=== PATIENT | female | born 1930 | race Caucasian/White ===

== ENCOUNTER → 2016-09-28 | Outpatient (CLI) | payer MEDICARE, OTHER ==
[~2016-09-28] MED LIST: AMIO200T42 PO; AMLO10TA2 PO; APIX2.5T PO; CEFD300C37 PO; CHOL20002 PO; DILT120C9 PO; DILT120T3 PO; DISO150C3 PO; DOXY100T PO; FURO-93 PO; IRON15TA3 PO; LEVO50TA5 PO; LISI-170 PO; MECL25TA2 PO; MULT-717 PO; OMEP-110 PO; VIT1TABL32 PO; WARF4TAB7 PO
== END | disposition home or self-care (01) ==
LOC: CARD 13:49
PROVIDERS: ATTEND Internal Medicine Pulmonary Disease
DX: R05 Cough (principal)
CPT/HCPCS: 94060

== ENCOUNTER → 2016-12-08 | Outpatient (CLI) | payer MEDICARE, OTHER ==
[~2016-12-08] MED LIST changes: +OMNIPAQUE 350 MG/ML, 100ML BOTTLE ONE
== END | disposition home or self-care (01) ==
LOC: CFH 11:02
PROVIDERS: ATTEND Nurse Practitioner
DX: K57.30 Diverticulosis of large intestine without perforation or abscess without bleeding (principal); K44.9 Diaphragmatic hernia without obstruction or gangrene; R19.09 Other intra-abdominal and pelvic swelling, mass and lump; N28.1 Cyst of kidney, acquired; M41.86 Other forms of scoliosis, lumbar region; M51.36 Other intervertebral disc degeneration, lumbar region; R59.0 Localized enlarged lymph nodes
CPT/HCPCS: 74177; Q9967

== ENCOUNTER 2017-02-16 09:07 | Day surgery (SDC) | payer MEDICARE, OTHER ==
[~2017-02-16] VITALS: Ht 160 cm; Wt 56.1 kg
[~2017-02-16 09:07] MED LIST changes: -OMNIPAQUE 350 MG/ML, 100ML BOTTLE ONE
[2017-02-16] MEDS ORDERED: LIDOCAINE 2%, 20ML ONE (09:29)
[2017-02-16] MEDS ORDERED: PLEASE ENTER HEIGHT AND WEIGHT MC SCH (10:00)
[2017-02-16 10:02] VITALS: BP 138/84
[2017-02-16] MEDS ORDERED: SODIUM CHLORIDE 0.9% 1,000 ML IV SCH (10:30)
[2017-02-16] MEDS ORDERED: FENTANYL PF 100 MCG/2ML ONE (10:57)
[2017-02-16] MEDS ORDERED: NALOXONE 1 MG/ML, 2ML ONE (10:57)
[2017-02-16] MEDS ORDERED: MIDAZOLAM 1 MG/ML, 5ML ONE (10:57)
[2017-02-16] MEDS ORDERED: FLUMAZENIL 0.1 MG/1 ML, 5ML ONE (10:57)
== END 2017-02-16 12:50 | disposition home or self-care (01) ==
LOC: OUT 09:07
PROVIDERS: ATTEND Internal Medicine
DX: C85.80 Other specified types of non-Hodgkin lymphoma, unspecified site (principal); R59.1 Generalized enlarged lymph nodes; I10 Essential (primary) hypertension; Z87.891 Personal history of nicotine dependence
CPT/HCPCS: 49180; 77012; 88305; 99156; 99157; J2250; J3010; J3490; J2310

== ENCOUNTER → 2017-06-07 | Outpatient (CLI) | payer MEDICARE, OTHER | END | disposition home or self-care (01) | LOC: CFH 11:12 | PROVIDERS: ATTEND Internal Medicine | DX: C85.90 Non-Hodgkin lymphoma, unspecified, unspecified site (principal); M51.36 Other intervertebral disc degeneration, lumbar region; K44.9 Diaphragmatic hernia without obstruction or gangrene | CPT/HCPCS: 71250; 74176 ==

== ENCOUNTER 2017-09-28 08:22 | Day surgery (SDC) | payer MEDICARE, OTHER ==
[~2017-09-28] VITALS: Ht 160 cm; Wt 56.9 kg
[~2017-09-28 08:22] MED LIST changes: +WARF4TAB65 PO; -WARF4TAB7 PO
[2017-09-28 08:41] VITALS: BP 138/71
[2017-09-28] MEDS ORDERED: LACTATED RINGERS 1,000 ML IV SCH (08:51)
[2017-09-28] MEDS ORDERED: MIDAZOLAM 1 MG/ML, 2ML ONE (09:34)
[2017-09-28] MEDS ORDERED: FENTANYL PF 100 MCG/2ML ONE (09:34)
[2017-09-28] MEDS ORDERED: PROPOFOL 50 ML ONE (09:35)
[2017-09-28] MEDS ORDERED: ONDANSETRON 0.8 MG/ML ORAL SOL PO PRN (11:00)
[2017-09-28] MEDS ORDERED: LABETALOL 5MG/ML, 20ML IV PRN (11:00)
[2017-09-28] MEDS ORDERED: MEPERIDINE/PF 25MG/0.5ML IVPush PRN (11:00)
[2017-09-28] MEDS ORDERED: MORPHINE SULFATE 4 MG/ML, 1ML IVPush PRN (11:00)
[2017-09-28] MEDS ORDERED: FENTANYL PF 100 MCG/2ML IV PRN (11:00)
[2017-09-28] MEDS ORDERED: ACETAMINOPHEN 325 MG TABLET PO PRN (11:00)
[2017-09-28] MEDS ORDERED: hydrALAzine 20 MG/ML, 1ML IV PRN (11:00)
== END 2017-09-28 11:45 ==
LOC: OUT 08:22
PROVIDERS: ATTEND Internal Medicine Gastroenterology
DX: K57.30 Diverticulosis of large intestine without perforation or abscess without bleeding (principal); K22.2 Esophageal obstruction; K31.89 Other diseases of stomach and duodenum; D64.9 Anemia, unspecified
CPT/HCPCS: 43239; 43248; 45330; 88305; 93005; J2250; J2704; J3010

== ENCOUNTER → 2017-11-21 | Outpatient (CLI) | payer MEDICARE, OTHER ==
[~2017-11-21] MED LIST changes: +WHEA1POW5 PO
== END | disposition home or self-care (01) ==
LOC: CFH 10:46
PROVIDERS: ATTEND Internal Medicine
DX: J98.4 Other disorders of lung (principal); N20.0 Calculus of kidney; I51.7 Cardiomegaly; K44.9 Diaphragmatic hernia without obstruction or gangrene; R59.1 Generalized enlarged lymph nodes; E04.1 Nontoxic single thyroid nodule; I70.0 Atherosclerosis of aorta; C83.00 Small cell B-cell lymphoma, unspecified site; M41.86 Other forms of scoliosis, lumbar region; Z90.710 Acquired absence of both cervix and uterus
CPT/HCPCS: 71250; 74176

== ENCOUNTER 2018-04-18 19:26 | Observation (INO) | payer MEDICARE, OTHER ==
[~2018-04-18] VITALS: Ht 157.5 cm; Wt 52.5 kg
[~2018-04-18 19:26] MED LIST changes: -AMLO10TA2 PO; +AMLO10TA6 PO; -CHOL20002 PO; +CHOL200052 PO
[2018-04-18] MEDS ORDERED: IRON1TAB60 PO (19:42)
[2018-04-18] MEDS ORDERED: CHOL2000 PO (19:42)
[2018-04-18] MEDS ORDERED: SODIUM CHLORIDE FLUSH 10ML SYR IVF ONE (20:30)
[2018-04-18 20:37] LABS: BASOPHILS # (AUTO) 0.02 x10^3/uL (0-0.1); BASOPHILS % (AUTO) 0 % (0-1); EOSINOPHILS % (AUTO) 1 % (1-7); LYMPHOCYTES # (AUTO) 1.15 x10^3/uL (1-3.4); LYMPHOCYTES % (AUTO) 13 % (22-44); MD NO; MEAN CORPUSCULAR HEMOGLOBIN 29.9 pg (27.0-34.8); MEAN CORPUSCULAR HGB CONC 32.9 g/dL (32.4-35.8); MEAN CORPUSCULAR VOLUME 90.8 fL (80-100); MEAN PLATELET VOLUME 8.5 fL (7.4-10.4); MONOCYTES # (AUTO) 0.47 x10^3/uL (0.2-0.8); MONOCYTES % (AUTO) 5 % (2-9); NEUTROPHILS # (AUTO) 6.86 x10^3/uL (1.8-6.8); NEUTROPHILS % (AUTO) 80 % (42-75); PLATELET COUNT 213 x10^3/uL (130-400); RED BLOOD COUNT 3.53 x10^6/uL (3.82-5.3); RED CELL DISTRIBUTION WIDTH 14.3 % (9.6-15.2)
[2018-04-18 20:48] LABS: ALANINE AMINOTRANSFERASE 43 U/L (12-78); ALBUMIN 3.8 g/dL (3.4-5.0); ANION GAP 10 mmol/L (5-15); CALCIUM 8.9 mg/dL (8.5-10.1); CHLORIDE 106 mmol/L (98-107); CREATININE 1.96 mg/dL (0.55-1.02)
[2018-04-18 20:53] LABS: ALKALINE PHOSPHATASE 85 U/L (45-117); BILIRUBIN,TOTAL 0.5 mg/dL (0.2-1.0); TOTAL PROTEIN 7.7 g/dL (6.4-8.2); TROPONIN I < 0.015 ng/mL (0.000-0.045)
[2018-04-18 20:59] LABS: THYROID STIMULATING HORMONE 0.876 mIU/L (0.358-3.740)
[2018-04-18] MEDS ORDERED: ACETAMINOPHEN 325 MG TABLET PO PRN (22:30)
[2018-04-18] MEDS ORDERED: SODIUM CHLORIDE 0.9% 1,000 ML IV SCH (22:30)
[2018-04-18] MEDS ORDERED: POLYETHYLENE GLYCOL 17 GM PACKET PO PRN (22:30)
[2018-04-18 22:47] VITALS: BP 158/62
[2018-04-19 01:04] LABS: TROPONIN I < 0.015 ng/mL (0.000-0.045)
[2018-04-19 01:27] VITALS: BP 123/55
[2018-04-19 05:55] LABS: CHOL/HDL RATIO 2.2; CHOLESTEROL, TOTAL 144 mg/dL (140-239); HDL CHOL % 46 % (28-40); HDL CHOLESTEROL (DIRECT) 66 mg/dL (40-60); LDL CHOLESTEROL,CALCULATED 61 mg/dL (54-169); LDL/HDL RATIO 0.9 (0.5-3.0); TRIGLYCERIDES 84 mg/dL (50-200); TROPONIN I < 0.015 ng/mL (0.000-0.045); VLDL CHOLESTEROL 17 mg/dL (0-25)
[2018-04-19] MEDS ORDERED: LEVOTHYROXINE 50 MCG TABLET PO SCH (06:30)
[2018-04-19] MEDS ORDERED: REGADENOSON 0.4 MG/5 ML SYRINGE ONE (07:22)
[2018-04-19 07:35] VITALS: BP 126/60
[2018-04-19] MEDS ORDERED: CHOLECALCIFEROL 1,000 UNIT TABLET PO SCH (09:00)
[2018-04-19] MEDS ORDERED: MULTIVITS,STRESS FORMULA 1 TABLET PO SCH (09:00)
[2018-04-19] MEDS ORDERED: SODIUM CHLORIDE FLUSH 10ML SYR IVF SCH (09:00)
[2018-04-19] MEDS ORDERED: TEMPLATE NON-FORMULARY MED. (Vit A,C & E/Lutein/Minerals** (Ocuvite Tablet**) 1 TAB) PO SCH (09:00)
[2018-04-19] MEDS ORDERED: LISINOPRIL 20 MG TABLET PO SCH (09:00)
[2018-04-19] MEDS ORDERED: MULTIVITAMINS/MINERALS TABLET PO SCH (09:00)
[2018-04-19] MEDS ORDERED: TEMPLATE NON-FORMULARY MED. (Iron,Carbonyl/Vit C/Vit B12/Fa** (Iron 100 Plus Tablet**) 1 T PO SCH (09:00)
[2018-04-19] MEDS ORDERED: AMIODARONE 200 MG TABLET PO SCH (09:00)
[2018-04-19] MEDS ORDERED: AMLODIPINE 5 MG TABLET PO SCH (09:00)
[2018-04-19 13:35] VITALS: BP 110/52
== END 2018-04-19 15:55 | disposition home or self-care (01) ==
LOC: SUATTDRO 22:00 → ED 22:14 → EDIP 22:16 → INTOOBSV 22:16 → 5SO 22:30
PROVIDERS: ADMIT Hospitalist; ATTEND Hospitalist
DX: R07.89 Other chest pain (principal); D64.9 Anemia, unspecified; I13.0 Hypertensive heart and chronic kidney disease with heart failure and stage 1 through stage 4 chronic kidney disease, or unspecified chronic kidney disease; N17.9 Acute kidney failure, unspecified; I48.2 Chronic atrial fibrillation; E03.9 Hypothyroidism, unspecified; I27.20 Pulmonary hypertension, unspecified; I50.9 Heart failure, unspecified; K21.9 Gastro-esophageal reflux disease without esophagitis; N18.9 Chronic kidney disease, unspecified; Z79.82 Long term (current) use of aspirin; Z85.72 Personal history of non-Hodgkin lymphomas; Z87.891 Personal history of nicotine dependence; Z95.0 Presence of cardiac pacemaker; Z90.710 Acquired absence of both cervix and uterus
CPT/HCPCS: 36415; 71045; 78452; 80053; 80061; 83735; 83880; 84439; 84443; 84484; 85025; 93005; 93017; 99284; A9502; C9898; G0378; J2785; J7030

== ENCOUNTER 2018-06-25 11:26 | Inpatient (IN) | payer MEDICARE, OTHER ==
[~2018-06-25] VITALS: Ht 157.5 cm; Wt 60.6 kg
[~2018-06-25 11:26] MED LIST changes: -AMLO10TA6 PO; +AMLO10TA8 PO; +CHOL2000 PO; +IRON1TAB60 PO
[2018-06-25 11:51] LABS: BASOPHILS % (AUTO) 0 % (0-1); EOSINOPHILS % (AUTO) 0 % (1-7); LYMPHOCYTES # (AUTO) 0.59 x10^3/uL (1-3.4); LYMPHOCYTES % (AUTO) 5 % (22-44); MD NO; MEAN CORPUSCULAR HEMOGLOBIN 29.3 pg (27.0-34.8); MEAN CORPUSCULAR HGB CONC 32.7 g/dL (32.4-35.8); MEAN CORPUSCULAR VOLUME 89.6 fL (80-100); MEAN PLATELET VOLUME 7.6 fL (7.4-10.4); MONOCYTES # (AUTO) 0.11 x10^3/uL (0.2-0.8); MONOCYTES % (AUTO) 1 % (2-9); NEUTROPHILS # (AUTO) 10.29 x10^3/uL (1.8-6.8); NEUTROPHILS % (AUTO) 94 % (42-75); PLATELET COUNT 249 x10^3/uL (130-400); RED BLOOD COUNT 3.63 x10^6/uL (3.82-5.3); RED CELL DISTRIBUTION WIDTH 14.1 % (9.6-15.2)
--- NOTE | 2018-06-25 11:52 | NUR ---
BIB [facility] WITH C/O SUDDEN ONSET OF BILATERAL FLANK PAIN. WORSE ON RIGHT SIDE. PT DENIES HEMATURIA. STATES STARTED AROUND 0500. WHEN [facility] FIRST ARRIVED PAIN WAS A 8/10. AFTER 100MCG OF FENTANYL PAIN IS NOW A 4/10. PT WAS ALSO GIVEN 4MG OF ZOFRAN FOR NAUSEA. MILD AMOUNT OF DISTRESS NOTED AT THIS TIME. BREATHING REGULAR AND UNLABORED. ERMD AT BEDSIDE. POC DISCUSSED. PT AWARE OF NEED FOR URINE. PT PLACED ON CONT. PULSE OX AND BP. WILL CONTINUE TO MONITOR.
--- NOTE | 2018-06-25 11:56 | NUR ---
Paige roca in EDM - 06/25/18 at 1621 by VEL assumed care. Pt moved from [place] to 14. pt placed on special contact precautions. After MD exam, pt to xray via filomena
[2018-06-25] MEDS ORDERED: SODIUM CHLORIDE FLUSH 10ML SYR IVF ONE (12:00)
[2018-06-25 12:02] LABS: ANION GAP 6 mmol/L (5-15); CALCIUM 9.5 mg/dL (8.5-10.1); CHLORIDE 104 mmol/L (98-107)
[2018-06-25 12:06] LABS: ALANINE AMINOTRANSFERASE 26 U/L (12-78); ALKALINE PHOSPHATASE 71 U/L (45-117); BILIRUBIN,TOTAL 0.8 mg/dL (0.2-1.0); CREATININE 1.93 mg/dL (0.55-1.02); TOTAL PROTEIN 7.7 g/dL (6.4-8.2)
[2018-06-25] MEDS ORDERED: MORPHINE SULFATE 4 MG/ML, 1ML ONE ×2 (12:22→15:04)
[2018-06-25] MEDS ORDERED: MORPHINE SULFATE 4 MG/ML, 1ML IVPush ONE (12:30)
--- NOTE | 2018-06-25 12:57 | NUR ---
PT MEDICATED PER MAR FOR INCREASED PAIN. POC UPDATED.
--- NOTE | 2018-06-25 13:30 | NUR ---
PT STATES IMPROVEMENT OF PAIN AT THIS TIME. POC UPDATED. PT PREFERS FEMALE RN TO PERFORM CATH.
--- NOTE | 2018-06-25 14:40 | NUR ---
CATALINA ORTEGA AT BEDSIDE TP PREFORM STRIGHT CATH UA.
[2018-06-25 15:07] LABS: MICROSCOPIC INDICATED
--- NOTE | 2018-06-25 15:10 | NUR ---
PT MEDICATED FOR INCREASED PAIN BY CATALINA MORRELL.
[2018-06-25 15:16] LABS: CULTURE INDICATED? NO
[2018-06-25] MEDS ORDERED: morphine SULFATE 10 MG/ML, 1ML IVPush ONE (15:30)
[2018-06-25] MEDS ORDERED: morphine SULFATE/PF 0.5 MG/ML, 10ML IV PRN (15:30)
[2018-06-25] MEDS ORDERED: ZOLPIDEM 5MG TABLET PO PRN (16:00)
[2018-06-25] MEDS ORDERED: ONDANSETRON ODT 4 MG PO PRN (16:00)
[2018-06-25] MEDS ORDERED: LABETALOL 5MG/ML, 20ML IVPush PRN (16:00)
[2018-06-25] MEDS ORDERED: POLYETHYLENE GLYCOL 17 GM PACKET PO PRN (16:00)
[2018-06-25] MEDS ORDERED: LIDODERM 5% PATCH TD PRN (16:00)
[2018-06-25] MEDS ORDERED: ONDANSETRON 2MG/ML, 2ML IVPush PRN (16:00)
[2018-06-25] MEDS ORDERED: BISACODYL 10 MG SUPP PR PRN (16:00)
[2018-06-25] MEDS ORDERED: DOCUSATE 100 MG CAPSULE PO PRN (16:00)
[2018-06-25] MEDS ORDERED: HYDROcodone/APAP 5/325 TABLET PO PRN (16:00)
[2018-06-25] MEDS ORDERED: hydrALAzine 20 MG/ML, 1ML IVPush PRN (16:00)
--- NOTE | 2018-06-25 16:10 | NUR ---
PT PLACED ON OXY MASK FOR HER MOUTH BREATHING.
[2018-06-25 16:24] LABS: FREE T4 (FREE THYROXINE) 1.8 ng/dL (0.76-1.46); THYROID STIMULATING HORMONE 2.71 mIU/L (0.358-3.740)
--- NOTE | 2018-06-25 17:25 | NUR ---
BELONGINGS: MARIA DE JESUS, CELL PHONE, OXYGEN IN BLACK CASE, PINK ROBE, SLIPPERS AND GLASSES. REPORT TO EMILE.
[2018-06-25 17:44] VITALS: BP 154/67
[2018-06-25] MEDS: SODIUM CHLORIDE 0.9% 1,000 ML IV SCH (18:15)
[2018-06-25] MEDS: HEPARIN 5,000 UNITS/ML, 1ML SQ SCH (18:15)
[2018-06-25] MEDS: AMLODIPINE 5 MG TABLET PO SCH (21:00)
[2018-06-25 22:04] VITALS: BP 154/60
[2018-06-25] MEDS: morphine SULFATE 10 MG/ML, 1ML IVPush PRN (23:06)
[2018-06-26 00:17] VITALS: BP 150/52
[2018-06-26] MEDS: HEPARIN 5,000 UNITS/ML, 1ML SQ SCH ×3 (02:00→16:43)
[2018-06-26] MEDS: morphine SULFATE 10 MG/ML, 1ML IVPush PRN ×2 (02:49→05:21)
[2018-06-26] MEDS: SODIUM CHLORIDE 0.9% 1,000 ML IV SCH ×3 (02:52→19:59)
[2018-06-26 06:54] VITALS: BP 123/62
[2018-06-26 06:59] LABS: BASOPHILS # (AUTO) 0.01 x10^3/uL (0-0.1); BASOPHILS % (AUTO) 0 % (0-1); EOSINOPHILS # (AUTO) 0.01 x10^3/uL (0-0.4); EOSINOPHILS % (AUTO) 0 % (1-7); LYMPHOCYTES # (AUTO) 0.87 x10^3/uL (1-3.4); LYMPHOCYTES % (AUTO) 8 % (22-44); MD NO; MEAN CORPUSCULAR HGB CONC 33.3 g/dL (32.4-35.8); MEAN CORPUSCULAR VOLUME 90.1 fL (80-100); MONOCYTES # (AUTO) 0.66 x10^3/uL (0.2-0.8); MONOCYTES % (AUTO) 6 % (2-9); NEUTROPHILS # (AUTO) 9.81 x10^3/uL (1.8-6.8); NEUTROPHILS % (AUTO) 86 % (42-75); PLATELET COUNT 212 x10^3/uL (130-400); RED BLOOD COUNT 3.53 x10^6/uL (3.82-5.3); RED CELL DISTRIBUTION WIDTH 14.6 % (9.6-15.2)
[2018-06-26 07:09] LABS: CHLORIDE 108 mmol/L (98-107)
[2018-06-26 07:16] LABS: ANION GAP 6 mmol/L (5-15); CALCIUM 8.6 mg/dL (8.5-10.1); CHOL/HDL RATIO 2.3; CHOLESTEROL, TOTAL 164 mg/dL (140-239); CREATININE 2.05 mg/dL (0.55-1.02); HDL CHOL % 44 % (28-40); HDL CHOLESTEROL (DIRECT) 72 mg/dL (40-60); LDL CHOLESTEROL,CALCULATED 70 mg/dL (54-169); TRIGLYCERIDES 111 mg/dL (50-200); VLDL CHOLESTEROL 22 mg/dL (0-25)
[2018-06-26] MEDS: PANTOPROZOLE 40MG TABLET PO SCH (07:30)
[2018-06-26] MEDS: MULTIVITS MIN PO SCH (09:00)
[2018-06-26] MEDS: LYCOPENE T PO SCH (09:00)
[2018-06-26] MEDS ORDERED: LEVOTHYROXINE 50 MCG TABLET PO SCH (09:00)
[2018-06-26] MEDS: [UNRECOGNIZED DRUG - OTHER] PO SCH (09:00)
[2018-06-26] MEDS: LUT PO SCH (09:00)
[2018-06-26] MEDS: CHOLECALCIFEROL 1,000 UNIT TABLET PO SCH (09:00)
[2018-06-26 10:14] LABS: CULTURE INDICATED? YES; MICROSCOPIC INDICATED
[2018-06-26 12:15] VITALS: BP 97/57
[2018-06-26] MEDS: AMLODIPINE 5 MG TABLET PO SCH ×2 (14:45→19:59)
[2018-06-26] MEDS: AMIODARONE 200 MG TABLET PO SCH (14:45)
[2018-06-26 18:59] VITALS: BP 136/62
[2018-06-27 00:45] VITALS: BP 126/50
[2018-06-27] MEDS: HEPARIN 5,000 UNITS/ML, 1ML SQ SCH ×3 (01:32→17:37)
[2018-06-27] MEDS: SODIUM CHLORIDE 0.9% 1,000 ML IV SCH ×3 (04:32→22:19)
[2018-06-27 05:56] LABS: BASOPHILS # (AUTO) 0.05 x10^3/uL (0-0.1); BASOPHILS % (AUTO) 0 % (0-1); EOSINOPHILS % (AUTO) 0 % (1-7); LYMPHOCYTES # (AUTO) 0.74 x10^3/uL (1-3.4); LYMPHOCYTES % (AUTO) 5 % (22-44); MD NO; MEAN CORPUSCULAR HEMOGLOBIN 30.3 pg (27.0-34.8); MEAN CORPUSCULAR HGB CONC 33.2 g/dL (32.4-35.8); MEAN CORPUSCULAR VOLUME 91.1 fL (80-100); MEAN PLATELET VOLUME 8.4 fL (7.4-10.4); MONOCYTES % (AUTO) 4 % (2-9); NEUTROPHILS # (AUTO) 14.41 x10^3/uL (1.8-6.8); NEUTROPHILS % (AUTO) 91 % (42-75); PLATELET COUNT 182 x10^3/uL (130-400); RED BLOOD COUNT 3.39 x10^6/uL (3.82-5.3); RED CELL DISTRIBUTION WIDTH 14.1 % (9.6-15.2)
[2018-06-27] MEDS: LEVOTHYROXINE 50 MCG TABLET PO SCH ×2 (06:00→07:40)
[2018-06-27 06:07] LABS: ANION GAP 6 mmol/L (5-15); CALCIUM 8.2 mg/dL (8.5-10.1); CHLORIDE 109 mmol/L (98-107); CREATININE 2.34 mg/dL (0.55-1.02)
[2018-06-27] MEDS: morphine SULFATE 10 MG/ML, 1ML IVPush PRN ×3 (06:34→12:56)
[2018-06-27] MEDS: CHOLECALCIFEROL 1,000 UNIT TABLET PO SCH (07:26)
[2018-06-27] MEDS: LYCOPENE T PO SCH (07:26)
[2018-06-27] MEDS: [UNRECOGNIZED DRUG - OTHER] PO SCH (07:26)
[2018-06-27] MEDS: MULTIVITS MIN PO SCH (07:26)
[2018-06-27] MEDS: PANTOPROZOLE 40MG TABLET PO SCH (07:26)
[2018-06-27] MEDS: LUT PO SCH (07:26)
[2018-06-27 07:44] VITALS: BP 137/60
[2018-06-27] MEDS: AMLODIPINE 5 MG TABLET PO SCH ×2 (08:30→20:31)
[2018-06-27] MEDS: AMIODARONE 200 MG TABLET PO SCH (08:30)
[2018-06-27] MEDS ORDERED: CHOLECALCIFEROL 1,000 UNIT TABLET PO ONE (08:30)
[2018-06-27] MEDS ORDERED: PANTOPROZOLE 40MG TABLET PO ONE (08:30)
[2018-06-27 13:26] VITALS: BP 142/59
[2018-06-27] MEDS ORDERED: CEFTRIAXONE PMX 1GM/50ML 50 ML IV SCH (15:00)
[2018-06-27 18:56] VITALS: BP 142/64
[2018-06-28 01:07] VITALS: BP 124/60
[2018-06-28] MEDS: morphine SULFATE 10 MG/ML, 1ML IVPush PRN ×2 (01:21→07:56)
[2018-06-28] MEDS: HEPARIN 5,000 UNITS/ML, 1ML SQ SCH ×3 (01:48→18:09)
[2018-06-28 05:25] LABS: BASOPHILS % (AUTO) 0 % (0-1); EOSINOPHILS % (AUTO) 0 % (1-7); LYMPHOCYTES # (AUTO) 0.94 x10^3/uL (1-3.4); LYMPHOCYTES % (AUTO) 7 % (22-44); MD NO; MEAN CORPUSCULAR HGB CONC 33.2 g/dL (32.4-35.8); MEAN CORPUSCULAR VOLUME 90.2 fL (80-100); MEAN PLATELET VOLUME 8.5 fL (7.4-10.4); MONOCYTES # (AUTO) 0.73 x10^3/uL (0.2-0.8); MONOCYTES % (AUTO) 5 % (2-9); NEUTROPHILS # (AUTO) 12.37 x10^3/uL (1.8-6.8); NEUTROPHILS % (AUTO) 88 % (42-75); PLATELET COUNT 149 x10^3/uL (130-400); RED BLOOD COUNT 2.89 x10^6/uL (3.82-5.3); RED CELL DISTRIBUTION WIDTH 14.2 % (9.6-15.2)
[2018-06-28 05:32] LABS: ANION GAP 6 mmol/L (5-15); CALCIUM 8.1 mg/dL (8.5-10.1); CHLORIDE 108 mmol/L (98-107)
[2018-06-28 05:33] LABS: CREATININE 2.24 mg/dL (0.55-1.02)
[2018-06-28] MEDS: LEVOTHYROXINE 50 MCG TABLET PO SCH (06:03)
[2018-06-28] MEDS: LUT PO SCH (07:10)
[2018-06-28] MEDS: MULTIVITS MIN PO SCH (07:10)
[2018-06-28] MEDS: [UNRECOGNIZED DRUG - OTHER] PO SCH (07:10)
[2018-06-28] MEDS: LYCOPENE T PO SCH (07:10)
[2018-06-28] MEDS: PANTOPROZOLE 40MG TABLET PO SCH (07:11)
[2018-06-28] MEDS: CHOLECALCIFEROL 1,000 UNIT TABLET PO SCH (07:12)
[2018-06-28 07:31] VITALS: BP 126/65
[2018-06-28] MEDS: AMLODIPINE 5 MG TABLET PO SCH ×2 (08:39→21:17)
[2018-06-28] MEDS: AMIODARONE 200 MG TABLET PO SCH (08:39)
[2018-06-28] MEDS ORDERED: FENTANYL PF 250 MCG/5ML ONE (11:16)
[2018-06-28] MEDS ORDERED: CEFAZOLIN 1,000 MG ONE (11:17)
[2018-06-28] MEDS ORDERED: GLYCOPYRROLATE 0.2MG/1ML, 5ML ONE (11:17)
[2018-06-28] MEDS ORDERED: ROCURONIUM 10MG/ML,5ML ONE (11:17)
[2018-06-28] MEDS ORDERED: NEOSTIGMINE 1 MG/ML, 10ML ONE (11:17)
[2018-06-28] MEDS ORDERED: PROPOFOL 10 MG/ML, 20ML ONE (11:17)
[2018-06-28] MEDS ORDERED: ONDANSETRON 2MG/ML, 2ML ONE (11:17)
[2018-06-28] MEDS ORDERED: DEXAMETHASONE 4 MG/ML, 1ML ONE (11:17)
[2018-06-28] MEDS ORDERED: ONDANSETRON 2MG/ML, 2ML IV PRN (12:00)
[2018-06-28] MEDS ORDERED: HYDROmorphone 2 MG/ML, 1ML IVPush PRN (12:00)
[2018-06-28] MEDS ORDERED: PROMETHAZINE 25 MG/ML, 1ML IV PRN (12:00)
[2018-06-28] MEDS ORDERED: LABETALOL 5MG/ML, 20ML IV PRN (12:00)
[2018-06-28] MEDS ORDERED: FENTANYL PF 100 MCG/2ML IV PRN (12:00)
[2018-06-28] MEDS ORDERED: MORPHINE SULFATE 4 MG/ML, 1ML IVPush PRN (12:00)
[2018-06-28] MEDS ORDERED: ACETAMINOPHEN 325 MG TABLET PO PRN (12:00)
[2018-06-28] MEDS ORDERED: OXYcodone 5 MG/5 ML ORAL.SOL UDC PO PRN (12:00)
[2018-06-28] MEDS ORDERED: PROMETHAZINE 25 MG SUPP PR PRN (12:00)
[2018-06-28] MEDS ORDERED: ONDANSETRON ODT 8 MG PO PRN (12:00)
[2018-06-28] MEDS ORDERED: PROMETHAZINE 12.5 MG SUPP PR PRN (12:00)
[2018-06-28] MEDS ORDERED: PROMETHAZINE 25 MG/ML, 1ML IM PRN ×2 (12:00)
[2018-06-28] MEDS ORDERED: hydrALAzine 20 MG/ML, 1ML IV PRN (12:00)
[2018-06-28] MEDS ORDERED: CEFTRIAXONE 1,000 MG ONE (12:31)
[2018-06-28] MEDS ORDERED: OMNIPAQUE 350 MG/ML, 50 ML BOTTLE ONE (14:15)
[2018-06-28] MEDS ORDERED: CEFTRIAXONE PMX 1GM/50ML 50 ML IV SCH (14:30)
[2018-06-28] MEDS: SODIUM CHLORIDE 0.9% 1,000 ML IV SCH (16:00)
[2018-06-28 18:39] VITALS: BP 124/60
[2018-06-29 00:33] VITALS: BP 128/64
[2018-06-29] MEDS: HEPARIN 5,000 UNITS/ML, 1ML SQ SCH ×2 (02:06→10:18)
[2018-06-29] MEDS: LEVOTHYROXINE 50 MCG TABLET PO SCH (05:34)
[2018-06-29 06:15] LABS: BASOPHILS % (AUTO) 0 % (0-1); EOSINOPHILS % (AUTO) 0 % (1-7); LYMPHOCYTES % (AUTO) 5 % (22-44); MD NO; MEAN CORPUSCULAR HEMOGLOBIN 30.1 pg (27.0-34.8); MEAN CORPUSCULAR HGB CONC 33.3 g/dL (32.4-35.8); MEAN CORPUSCULAR VOLUME 90.6 fL (80-100); MEAN PLATELET VOLUME 9.1 fL (7.4-10.4); MONOCYTES # (AUTO) 0.22 x10^3/uL (0.2-0.8); MONOCYTES % (AUTO) 3 % (2-9); NEUTROPHILS # (AUTO) 7.67 x10^3/uL (1.8-6.8); NEUTROPHILS % (AUTO) 92 % (42-75); PLATELET COUNT 153 x10^3/uL (130-400); RED BLOOD COUNT 2.87 x10^6/uL (3.82-5.3); RED CELL DISTRIBUTION WIDTH 14.1 % (9.6-15.2)
[2018-06-29 06:29] LABS: CHLORIDE 108 mmol/L (98-107)
[2018-06-29 06:40] LABS: ALANINE AMINOTRANSFERASE 88 U/L (12-78); ALBUMIN 2.4 g/dL (3.4-5.0); ALKALINE PHOSPHATASE 52 U/L (45-117); ANION GAP 7 mmol/L (5-15); BILIRUBIN,TOTAL 0.2 mg/dL (0.2-1.0); CALCIUM 8.3 mg/dL (8.5-10.1); CREATININE 1.99 mg/dL (0.55-1.02)
[2018-06-29 07:10] VITALS: BP 125/55
[2018-06-29] MEDS ORDERED: CEFDINIR 300 MG CAPSULE PO SCH (09:00)
[2018-06-29] MEDS: LYCOPENE T PO SCH (09:00)
[2018-06-29] MEDS: [UNRECOGNIZED DRUG - OTHER] PO SCH (09:00)
[2018-06-29] MEDS: LUT PO SCH (09:00)
[2018-06-29] MEDS: MULTIVITS MIN PO SCH (09:00)
[2018-06-29] MEDS: PANTOPROZOLE 40MG TABLET PO SCH (09:22)
[2018-06-29] MEDS: SODIUM CHLORIDE 0.9% 1,000 ML IV SCH (09:23)
[2018-06-29] MEDS: CHOLECALCIFEROL 1,000 UNIT TABLET PO SCH (09:32)
[2018-06-29] MEDS: AMIODARONE 200 MG TABLET PO SCH (09:32)
[2018-06-29] MEDS: AMLODIPINE 5 MG TABLET PO SCH (09:32)
[2018-06-29] MEDS ORDERED: CEFD300C37 PO ×3 (10:53→11:15)
[2018-06-29 14:27] VITALS: BP 122/59
[2018-06-30] MEDS ORDERED: CEFDINIR 300 MG CAPSULE PO SCH (09:00)
== END 2018-06-29 16:10 | disposition home or self-care (01) | DRG 659 ==
LOC: ED 12:32 → EDIP 15:24 → 4NOR 17:37 → 4EST 21:57 → DCLOUNGE 06-29 15:55
PROVIDERS: ADMIT Hospitalist; ATTEND Hospitalist
PROC: 0T768DZ Dilation of Right Ureter with Intraluminal Device, Via Natural or Artificial Opening Endoscopic (ICD-10-PCS; 2018-06-28)
PROC: 0T9B70Z Drainage of Bladder with Drainage Device, Via Natural or Artificial Opening (ICD-10-PCS; 2018-06-28)
PROC: BT1D1ZZ Fluoroscopy of Right Kidney, Ureter and Bladder using Low Osmolar Contrast (ICD-10-PCS; 2018-06-28)
PROC: 0TC68ZZ Extirpation of Matter from Right Ureter, Via Natural or Artificial Opening Endoscopic (ICD-10-PCS; principal; 2018-06-28 12:00)
DX: N13.6 Pyonephrosis (principal); J96.21 Acute and chronic respiratory failure with hypoxia; C85.90 Non-Hodgkin lymphoma, unspecified, unspecified site; I13.0 Hypertensive heart and chronic kidney disease with heart failure and stage 1 through stage 4 chronic kidney disease, or unspecified chronic kidney disease; I50.32 Chronic diastolic (congestive) heart failure; D68.69 Other thrombophilia; N17.9 Acute kidney failure, unspecified; B95.1 Streptococcus, group B, as the cause of diseases classified elsewhere; E03.9 Hypothyroidism, unspecified; I07.1 Rheumatic tricuspid insufficiency; N18.4 Chronic kidney disease, stage 4 (severe); I27.20 Pulmonary hypertension, unspecified; I48.91 Unspecified atrial fibrillation; K21.9 Gastro-esophageal reflux disease without esophagitis; K44.9 Diaphragmatic hernia without obstruction or gangrene; K64.9 Unspecified hemorrhoids; N21.1 Calculus in urethra; Z87.01 Personal history of pneumonia (recurrent); Z87.442 Personal history of urinary calculi; Z87.891 Personal history of nicotine dependence; Z90.710 Acquired absence of both cervix and uterus; Z79.899 Other long term (current) drug therapy; Z88.8 Allergy status to other drugs, medicaments and biological substances; Z90.49 Acquired absence of other specified parts of digestive tract; Z82.49 Family history of ischemic heart disease and other diseases of the circulatory system; Z83.3 Family history of diabetes mellitus; Z95.0 Presence of cardiac pacemaker
CPT/HCPCS: 36415; 74176; 74420; 80048; 80053; 80061; 81001; 82360; 83690; 84439; 84443; 85025; 87077; 87086; 87147; 87186; 88300; G0378; J0690; J0696; J1100; J1644; J2405; J2704; J2710; J3010; J3490; Q9967; C1758; C2617; J2270; J7030

== ENCOUNTER 2018-07-23 11:49 | Inpatient (IN) | payer MEDICARE, OTHER ==
[~2018-07-23] VITALS: Ht 157.5 cm; Wt 57.9 kg
--- NOTE | 2018-07-23 11:54 | NUR ---
BIB [facility] FOR LEFT FLANK PAIN X1 DAY. DENIES N/V/D. PER PT "MY LEFT SIDE OF MY BACK AT KIDNEY AREA HURTS SINCE YESTERDAY, I WAS DIAGNOSED WITH KIDNEY STONES ON RIGHT SIDE ABOUT A MONTH AGO AND THIS FEELS THE SAME." EMS INITIATED IV AND ADMINISTERED 4MG ZOFRAN, 100 MCG FENTANYL SCHEME TECHNICIAN TO ER PAIN WENT FROM 11/28 TO 05/31 IN LEFT FLANK. LUQ, LLQ, LEFT FLANK TENDER TO PALPATION. DENIES ANY URINARY PAIN, DIFFICULTY, OR OTHER URINARY SYMPTOMS. CONT PULSE OX, BP, CARDIAC MONITORS APPLIED. VSS, PACED ON MONITOR. FALL PRECAUTIONS IN PLACE. SIDE RAILS UPX2. A&OX4. WARM BLANKET PROVIDED FOR COMFORT. AWAITING EVAL BY ERP.
--- NOTE | 2018-07-23 12:15 | NUR ---
LUDA PA AT BEDSIDE FOR EVALUATION, AWAITING ORDERS.
[2018-07-23] MEDS ORDERED: SODIUM CHLORIDE FLUSH 10ML SYR IVF ONE (12:30)
--- NOTE | 2018-07-23 12:32 | NUR ---
LAB AT BEDSIDE
[2018-07-23 12:38] LABS: BASOPHILS # (AUTO) 0.02 x10^3/uL (0-0.1); BASOPHILS % (AUTO) 0 % (0-1); EOSINOPHILS # (AUTO) 0.01 x10^3/uL (0-0.4); EOSINOPHILS % (AUTO) 0 % (1-7); LYMPHOCYTES # (AUTO) 0.71 x10^3/uL (1-3.4); LYMPHOCYTES % (AUTO) 6 % (22-44); MD NO; MEAN CORPUSCULAR HEMOGLOBIN 28.7 pg (27.0-34.8); MEAN CORPUSCULAR HGB CONC 32.1 g/dL (32.4-35.8); MEAN CORPUSCULAR VOLUME 89.5 fL (80-100); MEAN PLATELET VOLUME 7.4 fL (7.4-10.4); MONOCYTES # (AUTO) 0.35 x10^3/uL (0.2-0.8); MONOCYTES % (AUTO) 3 % (2-9); NEUTROPHILS # (AUTO) 11.32 x10^3/uL (1.8-6.8); NEUTROPHILS % (AUTO) 91 % (42-75); PLATELET COUNT 353 x10^3/uL (130-400); RED BLOOD COUNT 3.23 x10^6/uL (3.82-5.3); RED CELL DISTRIBUTION WIDTH 14.1 % (9.6-15.2)
--- NOTE | 2018-07-23 12:41 | NUR ---
PT AMBULATED TO RESTROOM WITH SLOW STEADY GAIT TO ATTEMPT UA, DENIES URGE AT THIS TIME. DISCUSSED WITH LUDA PERALES, AWARE. RESTING COMFORTABLY BACK IN BED, REQUESTING PAIN MEDICATION OF 5/10 LEFT FLANK PAIN, DISCUSSED WITH LUDA PERALES AWAITING ORDERS. CALL LIGHT IN REACH. FALL PRECUATIONS IN PLACE. VSS.
[2018-07-23 12:50] LABS: ALBUMIN 3.5 g/dL (3.4-5.0); ANION GAP 6 mmol/L (5-15); CHLORIDE 108 mmol/L (98-107)
--- NOTE | 2018-07-23 12:50 | NUR ---
PT IN CT
[2018-07-23 12:54] LABS: ALANINE AMINOTRANSFERASE 31 U/L (12-78); ALKALINE PHOSPHATASE 83 U/L (45-117); BILIRUBIN,TOTAL 0.4 mg/dL (0.2-1.0); CREATININE 2.52 mg/dL (0.55-1.02); TOTAL PROTEIN 7.2 g/dL (6.4-8.2)
[2018-07-23] MEDS ORDERED: MORPHINE SULFATE 4 MG/ML, 1ML ONE (12:57)
[2018-07-23] MEDS ORDERED: MORPHINE SULFATE 4 MG/ML, 1ML IVPush ONE (13:00)
--- NOTE | 2018-07-23 13:10 | NUR ---
PT BACK FROM CT, MEDICATED NOTED PER ORDER FOR 9/10 LEFT FLANK PAIN. VSS. CALL LIGHT IN REACH. DENIES URGE TO USE RESTROOM, AWARE UA NEEDED. FALL PRECAUTIONS IN PLACE.
[2018-07-23] MEDS ORDERED: TAMSULOSIN 0.4 MG CAP.ER.24H ONE (13:43)
[2018-07-23] MEDS ORDERED: KETOROLAC 30 MG/1 ML ONE (13:44)
[2018-07-23] MEDS ORDERED: FENTANYL PF 100 MCG/2ML ONE ×2 (13:44→16:23)
--- NOTE | 2018-07-23 13:47 | NUR ---
PT IN SEVERE PAIN, MOANING, RATES PAIN 10/10. DISCUSSED WITH DR. CELESTE, AWARE, TO MEDICATE PT PER ORDER. VSS. CALL LIGHT IN REACH. DENIES NEED TO USE RESTROOM. PT UPDATED ON POC, VERBALIZED UNDERSTANDING, AGREES TO ADMIT.
[2018-07-23] MEDS ORDERED: ONDANSETRON 2MG/ML, 2ML ONE (13:50)
[2018-07-23] MEDS ORDERED: FENTANYL PF 100 MCG/2ML IV ONE (14:00)
[2018-07-23] MEDS ORDERED: TAMSULOSIN 0.4 MG CAP.ER.24H PO ONE (14:00)
[2018-07-23] MEDS ORDERED: LORazepam 2 MG/ML, 1ML IVPush ONE (14:00)
[2018-07-23] MEDS ORDERED: KETOROLAC 30 MG/1 ML IVPush ONE (14:00)
--- NOTE | 2018-07-23 14:03 | NUR ---
ATTEMPTED TO CALL REPORT FOR FLOOR RN,BED RECEIVED, RN UNAVAILABLE TO RETURN CALL.
--- NOTE | 2018-07-23 14:14 | NUR ---
PHONE REPORT TO FLOOR RN JALEEL AT THIS TIME
[2018-07-23] MEDS ORDERED: INSULIN REGULAR 100 UNITS/ML, 3ML VIAL IVPush ONE (14:30)
[2018-07-23] MEDS ORDERED: ONDANSETRON 2MG/ML, 2ML IVPush ONE (14:30)
[2018-07-23] MEDS ORDERED: DEXTROSE 50%, 50ML SYRINGE IVPush ONE (14:30)
--- NOTE | 2018-07-23 14:33 | NUR ---
PT REPORTS PAIN IMPROVED, "SO MUCH BETTER, IT'S GONE, THANK YOU." ATIVAN HELD PER MD ORDER. PT RELAXED AND CALM. STRAIGHT CATH UA COMPLETED PER DR. BURTON. UA COLLECTED AND WALKED TO LAB. PT TOLERATED WELL, DENIES PAIN OR DISCOMFORT. CALL LIGHT IN REACH. VSS. AWAITING TRANSPORT TO FLOOR.
--- NOTE | 2018-07-23 14:45 | NUR ---
TO MEDICATE FOR ELEVATED POTASSIUM PRIOR TO TRANSPORT PER DR. BURTON.
[2018-07-23] MEDS ORDERED: CEFTRIAXONE PMX 1GM/50ML 50 ML IVPB ONE (15:00)
[2018-07-23] MEDS ORDERED: SODIUM CHLORIDE 0.9% 1,000ML IVBOLUS ONE (15:00)
[2018-07-23] MEDS ORDERED: DEXTROSE 50%, 50ML SYRINGE ONE (15:00)
[2018-07-23] MEDS ORDERED: INSULIN REGULAR 100 UNITS/ML, 3ML VIAL ONE (15:01)
--- NOTE | 2018-07-23 15:04 | NUR ---
JORDAN RN AT BEDSIDE TO ASSIST WITH PT MEDICATION PER ORDER. PT RESTING COMFORTABLY. DENIES ANY PAIN AND NEED TO USE RESTROOM. VSS. CALL LIGHT IN REACH. READY FOR TRANSPORT.
--- NOTE | 2018-07-23 15:06 | NUR ---
DUC RN NOTE: PATIENT MEDICATED FOR PRIMARY RN.
[2018-07-23 15:07] LABS: CULTURE INDICATED? YES; MICROSCOPIC INDICATED
--- NOTE | 2018-07-23 15:08 | NUR ---
Blood culture to be drawn per Dr. Robins prior to antibiotic admin. Lab called.
--- NOTE | 2018-07-23 15:16 | NUR ---
REPORT TO OR/RN REFERRAL JUDE. PT SCHEDULED FOR SURGERY AT [id number]
--- NOTE | 2018-07-23 15:21 | NUR ---
NPO SINCE 1700 HS, LAST ATE "MEAT STEW AND WATER"
--- NOTE | 2018-07-23 15:22 | NUR ---
ADMITTING PROVIDER AT BEDSIDE FOR EVALUATION
[2018-07-23] MEDS: SODIUM CHLORIDE 0.9% 1,000 ML IV SCH (15:24)
[2018-07-23] MEDS ORDERED: DOCUSATE 100 MG CAPSULE PO PRN (15:30)
[2018-07-23] MEDS ORDERED: BISACODYL 10 MG SUPP PR PRN (15:30)
[2018-07-23] MEDS ORDERED: morphine SULFATE 10 MG/ML, 1ML IVPush PRN (15:30)
[2018-07-23] MEDS ORDERED: hydrALAzine 20 MG/ML, 1ML IVPush PRN (15:30)
[2018-07-23] MEDS ORDERED: LABETALOL 5MG/ML, 20ML IVPush PRN (15:30)
[2018-07-23] MEDS ORDERED: POLYETHYLENE GLYCOL 17 GM PACKET PO PRN (15:30)
[2018-07-23] MEDS ORDERED: CEFTRIAXONE PMX 1GM/50ML 50 ML ONE (15:32)
--- NOTE | 2018-07-23 15:49 | NUR ---
FLOOR CATALINA MARMOLEJO CALLED AND UPDATED ON POC, PT TO GO TO OR AT APPROXIMATELY [phone] THEN TO ROOM 424 AFTER SURGERY. IVF AND ANTIBIOTICS INFUSING PER MD ORDER. CALL LIGHT IN REACH. VSS.
--- NOTE | 2018-07-23 15:58 | NUR ---
WHO FORM COMPLETED AND CONSENT SENT TO FLOOR TO FILLED OUT IN SURGERY PER SPIKEMAKING SUPERVISOR REQUEST. PT IN GOWN AND ALL BELONGINGS COLLECTED AND SENT TO OR/SURGERY WITH PT. PT TRANSFERRED AT THIS TIME.
[2018-07-23] MEDS ORDERED: CEFTRIAXONE PMX 1GM/50ML 50 ML IV SCH (16:00)
[2018-07-23 16:06] LABS: INTERNATIONAL NORMALIZED RATIO 0.97 (0.93-1.1); PROTHROMBIN TIME 10.2 Seconds (9.6-11.5)
[2018-07-23 16:08] LABS: ALBUMIN 3.5 g/dL (3.4-5.0); ANION GAP 6 mmol/L (5-15); CHLORIDE 109 mmol/L (98-107); CREATININE 2.78 mg/dL (0.55-1.02)
[2018-07-23] MEDS ORDERED: MIDAZOLAM 1 MG/ML, 2ML ONE (16:24)
[2018-07-23] MEDS ORDERED: PROPOFOL 10 MG/ML, 20ML ONE (16:24)
[2018-07-23] MEDS ORDERED: ONDANSETRON 2MG/ML, 2ML IV PRN (17:00)
[2018-07-23] MEDS ORDERED: LABETALOL 5 MG/ML SYRINGE IV PRN (17:00)
[2018-07-23] MEDS ORDERED: FENTANYL PF 100 MCG/2ML IV PRN (17:00)
[2018-07-23] MEDS ORDERED: MORPHINE SULFATE 4 MG/ML, 1ML IVPush PRN (17:00)
[2018-07-23] MEDS ORDERED: EPHEDRINE 50 MG/ML, 1ML IVPush PRN (17:00)
[2018-07-23] MEDS ORDERED: hydrALAzine 20 MG/ML, 1ML IV PRN (17:00)
[2018-07-23] MEDS ORDERED: OMNIPAQUE 350 MG/ML, 50 ML BOTTLE ONE (17:15)
[2018-07-23 18:34] VITALS: BP 116/58
[2018-07-23 18:57] VITALS: BP 113/48
[2018-07-23] MEDS: AMLODIPINE 5 MG TABLET PO SCH (20:45)
[2018-07-24 00:31] VITALS: BP 123/62
[2018-07-24] MEDS: BACLOFEN 10 MG TABLET PO PRN ×2 (04:19→15:44)
[2018-07-24] MEDS: ACETAMINOPHEN 325 MG TABLET PO PRN ×3 (04:19→15:44)
[2018-07-24 05:24] LABS: BASOPHILS # (AUTO) 0.07 x10^3/uL (0-0.1); BASOPHILS % (AUTO) 1 % (0-1); EOSINOPHILS # (AUTO) 0.07 x10^3/uL (0-0.4); EOSINOPHILS % (AUTO) 1 % (1-7); LYMPHOCYTES % (AUTO) 6 % (22-44); MD NO; MEAN CORPUSCULAR HEMOGLOBIN 29.9 pg (27.0-34.8); MEAN CORPUSCULAR HGB CONC 33.2 g/dL (32.4-35.8); MEAN PLATELET VOLUME 7.8 fL (7.4-10.4); MONOCYTES # (AUTO) 0.64 x10^3/uL (0.2-0.8); MONOCYTES % (AUTO) 6 % (2-9); NEUTROPHILS # (AUTO) 9.47 x10^3/uL (1.8-6.8); NEUTROPHILS % (AUTO) 87 % (42-75); PLATELET COUNT 297 x10^3/uL (130-400); RED BLOOD COUNT 2.82 x10^6/uL (3.82-5.3); RED CELL DISTRIBUTION WIDTH 14.4 % (9.6-15.2)
[2018-07-24 05:33] LABS: ALANINE AMINOTRANSFERASE 25 U/L (12-78); ALBUMIN 3.1 g/dL (3.4-5.0); ANION GAP 4 mmol/L (5-15); CALCIUM 8.6 mg/dL (8.5-10.1); CHLORIDE 112 mmol/L (98-107); CREATININE 2.37 mg/dL (0.55-1.02)
[2018-07-24 05:35] LABS: ALKALINE PHOSPHATASE 68 U/L (45-117); BILIRUBIN,TOTAL 0.4 mg/dL (0.2-1.0); TOTAL PROTEIN 6.4 g/dL (6.4-8.2)
[2018-07-24 06:00] LABS: TROPONIN I < 0.015 ng/mL (0.000-0.045)
[2018-07-24] MEDS: SODIUM CHLORIDE 0.9% 1,000 ML IV SCH ×2 (08:00→14:00)
[2018-07-24 08:04] VITALS: BP 128/52
[2018-07-24] MEDS: LEVOTHYROXINE 50 MCG TABLET PO SCH (08:10)
[2018-07-24] MEDS: AMLODIPINE 5 MG TABLET PO SCH ×2 (08:10→21:04)
[2018-07-24] MEDS: AMIODARONE 200 MG TABLET PO SCH (08:10)
[2018-07-24] MEDS: CHOLECALCIFEROL 1,000 UNIT TABLET PO SCH (08:10)
[2018-07-24] MEDS: (Iron,Carbonyl/Vit C/Vit B12/Fa** (Iron 100 Plus Tablet**) 1 T PO SCH (08:12)
[2018-07-24] MEDS ORDERED: DEXTROSE 50%, 50ML SYRINGE IVPush ONE (08:30)
[2018-07-24] MEDS ORDERED: INSULIN REGULAR 100 UNITS/ML, 3ML VIAL IV ONE (08:30)
[2018-07-24 09:38] LABS: TROPONIN I < 0.015 ng/mL (0.000-0.045)
[2018-07-24 12:04] LABS: TROPONIN I < 0.015 ng/mL (0.000-0.045)
[2018-07-24 12:17] VITALS: BP 96/50
[2018-07-24] MEDS ORDERED: CEFTRIAXONE PMX 2GM/50ML 50 ML IV SCH (13:00)
[2018-07-24] MEDS: HEPARIN 5,000 UNITS/ML, 1ML SQ SCH (13:58)
[2018-07-24 20:08] VITALS: BP 113/49
[2018-07-25] MEDS: HEPARIN 5,000 UNITS/ML, 1ML SQ SCH ×2 (01:00→15:11)
[2018-07-25 01:48] VITALS: BP 110/49
[2018-07-25 05:54] LABS: ALBUMIN 2.7 g/dL (3.4-5.0); ANION GAP 6 mmol/L (5-15); BASOPHILS # (AUTO) 0.02 x10^3/uL (0-0.1); BASOPHILS % (AUTO) 0 % (0-1); CALCIUM 7.9 mg/dL (8.5-10.1); CHLORIDE 112 mmol/L (98-107); EOSINOPHILS # (AUTO) 0.44 x10^3/uL (0-0.4); EOSINOPHILS % (AUTO) 3 % (1-7); LYMPHOCYTES # (AUTO) 0.97 x10^3/uL (1-3.4); LYMPHOCYTES % (AUTO) 7 % (22-44); MD NO; MEAN CORPUSCULAR HEMOGLOBIN 29.6 pg (27.0-34.8); MEAN CORPUSCULAR HGB CONC 33.1 g/dL (32.4-35.8); MEAN CORPUSCULAR VOLUME 89.4 fL (80-100); MEAN PLATELET VOLUME 7.9 fL (7.4-10.4); MONOCYTES # (AUTO) 0.66 x10^3/uL (0.2-0.8); MONOCYTES % (AUTO) 5 % (2-9); NEUTROPHILS # (AUTO) 12.19 x10^3/uL (1.8-6.8); NEUTROPHILS % (AUTO) 85 % (42-75); PLATELET COUNT 274 x10^3/uL (130-400); RED BLOOD COUNT 2.65 x10^6/uL (3.82-5.3); RED CELL DISTRIBUTION WIDTH 14.4 % (9.6-15.2)
[2018-07-25 08:00] VITALS: BP 126/53
[2018-07-25] MEDS ORDERED: SODIUM POLYSTYRENE SULFONATE ORAL SUSP PO ONE (08:00)
[2018-07-25] MEDS ORDERED: PIPERACILLIN/TAZO/PMX 3.375GM 50 ML IV SCH (08:00)
[2018-07-25] MEDS: AMIODARONE 200 MG TABLET PO SCH (08:54)
[2018-07-25] MEDS: CHOLECALCIFEROL 1,000 UNIT TABLET PO SCH (08:54)
[2018-07-25] MEDS: (Iron,Carbonyl/Vit C/Vit B12/Fa** (Iron 100 Plus Tablet**) 1 T PO SCH (08:54)
[2018-07-25] MEDS: AMLODIPINE 5 MG TABLET PO SCH ×2 (08:55→20:28)
[2018-07-25] MEDS: LEVOTHYROXINE 50 MCG TABLET PO SCH (08:55)
[2018-07-25] MEDS: SODIUM CHLORIDE 0.9% 1,000 ML IV SCH (08:55)
[2018-07-25] MEDS: ACETAMINOPHEN 325 MG TABLET PO PRN (09:05)
[2018-07-25] MEDS: BACLOFEN 10 MG TABLET PO PRN (09:05)
[2018-07-25 11:22] LABS: ANION GAP 8 mmol/L (5-15); CALCIUM 7.7 mg/dL (8.5-10.1); CHLORIDE 111 mmol/L (98-107); CREATININE 2.66 mg/dL (0.55-1.02)
[2018-07-25] MEDS ORDERED: PIPERACILLIN/TAZO(ZOSYN) 2.25 GM in NS 50 ML IVPB SCH (15:00)
[2018-07-25 15:33] VITALS: BP 110/60
[2018-07-25] MEDS: PIPERACILLIN/TAZO(ZOSYN) 2.25 GM in NS 50 ML IVPB SCH (20:27)
[2018-07-25 20:30] VITALS: BP 123/47
[2018-07-26 01:34] VITALS: BP 108/53
[2018-07-26] MEDS: HEPARIN 5,000 UNITS/ML, 1ML SQ SCH ×2 (01:48→09:23)
[2018-07-26] MEDS: PIPERACILLIN/TAZO(ZOSYN) 2.25 GM in NS 50 ML IVPB SCH ×4 (03:18→21:19)
[2018-07-26 05:45] LABS: MEAN CORPUSCULAR HEMOGLOBIN 29.4 pg (27.0-34.8); MEAN CORPUSCULAR HGB CONC 33.1 g/dL (32.4-35.8); MEAN CORPUSCULAR VOLUME 88.7 fL (80-100); MEAN PLATELET VOLUME 8.5 fL (7.4-10.4); PLATELET COUNT 263 x10^3/uL (130-400); RED BLOOD COUNT 2.57 x10^6/uL (3.82-5.3); RED CELL DISTRIBUTION WIDTH 14.4 % (9.6-15.2)
[2018-07-26 05:48] LABS: ALANINE AMINOTRANSFERASE 27 U/L (12-78); ALBUMIN 2.4 g/dL (3.4-5.0); ANION GAP 7 mmol/L (5-15); CALCIUM 7.7 mg/dL (8.5-10.1); CHLORIDE 110 mmol/L (98-107); CREATININE 2.21 mg/dL (0.55-1.02)
[2018-07-26 05:51] LABS: ALKALINE PHOSPHATASE 69 U/L (45-117); BILIRUBIN,TOTAL 0.3 mg/dL (0.2-1.0); TOTAL PROTEIN 5.9 g/dL (6.4-8.2)
[2018-07-26 06:16] LABS: MD MORPH REVIEW ONLY
[2018-07-26 06:17] LABS: BASOPHILS # (AUTO) 0.02 x10^3/uL (0-0.1); BASOPHILS % (AUTO) 0 % (0-1); EOSINOPHILS # (AUTO) 0.06 x10^3/uL (0-0.4); EOSINOPHILS % (AUTO) 1 % (1-7); LYMPHOCYTES # (AUTO) 0.77 x10^3/uL (1-3.4); LYMPHOCYTES % (AUTO) 6 % (22-44); MONOCYTES # (AUTO) 0.58 x10^3/uL (0.2-0.8); MONOCYTES % (AUTO) 5 % (2-9); NEUTROPHILS # (AUTO) 10.85 x10^3/uL (1.8-6.8); NEUTROPHILS % (AUTO) 88 % (42-75)
[2018-07-26 06:18] LABS: <PLATELET ESTIMATE> ADEQUATE; <PLT MORPHOLOGY> NORMAL PLT MORPH; ANISOCYTOSIS 1+; OVALOCYTES 1+; SCHISTOCYTES 1+
[2018-07-26 06:19] LABS: POLYCHROMASIA 1+
[2018-07-26 07:24] VITALS: BP 120/46
[2018-07-26] MEDS: AMIODARONE 200 MG TABLET PO SCH (08:00)
[2018-07-26] MEDS: AMLODIPINE 5 MG TABLET PO SCH ×2 (08:01→21:04)
[2018-07-26] MEDS: CHOLECALCIFEROL 1,000 UNIT TABLET PO SCH (08:01)
[2018-07-26] MEDS: LEVOTHYROXINE 50 MCG TABLET PO SCH (08:01)
[2018-07-26] MEDS ORDERED: MAGNESIUM HYDROXIDE 8%, 30ML UDC ONE (08:43)
[2018-07-26] MEDS: MAGNESIUM HYDROXIDE 8%, 30ML UDC PO SCH (08:46)
[2018-07-26] MEDS: (Iron,Carbonyl/Vit C/Vit B12/Fa** (Iron 100 Plus Tablet**) 1 T PO SCH (09:00)
[2018-07-26 10:30] LABS: OCCULT BLOOD POSITIVE (NEGATIVE)
[2018-07-26] MEDS: PANTOPRAZOLE 40 MG IV IVPush SCH ×2 (11:45→23:26)
[2018-07-26 13:12] VITALS: BP 119/52
[2018-07-26] MEDS ORDERED: GOLYTELY 4,000ML ORAL.SOL PO ONE (14:00)
[2018-07-26 19:18] LABS: OCCULT BLOOD POSITIVE (NEGATIVE)
[2018-07-26 19:47] LABS: BASOPHILS # (AUTO) 0.01 x10^3/uL (0-0.1); BASOPHILS % (AUTO) 0 % (0-1); EOSINOPHILS # (AUTO) 0.24 x10^3/uL (0-0.4); EOSINOPHILS % (AUTO) 2 % (1-7); LYMPHOCYTES # (AUTO) 1.37 x10^3/uL (1-3.4); LYMPHOCYTES % (AUTO) 10 % (22-44); MD NO; MEAN CORPUSCULAR HEMOGLOBIN 29.3 pg (27.0-34.8); MEAN CORPUSCULAR HGB CONC 32.7 g/dL (32.4-35.8); MEAN CORPUSCULAR VOLUME 89.5 fL (80-100); MEAN PLATELET VOLUME 8.3 fL (7.4-10.4); MONOCYTES # (AUTO) 0.75 x10^3/uL (0.2-0.8); MONOCYTES % (AUTO) 5 % (2-9); NEUTROPHILS # (AUTO) 11.47 x10^3/uL (1.8-6.8); NEUTROPHILS % (AUTO) 83 % (42-75); PLATELET COUNT 303 x10^3/uL (130-400); RED BLOOD COUNT 3.12 x10^6/uL (3.82-5.3); RED CELL DISTRIBUTION WIDTH 14.3 % (9.6-15.2)
[2018-07-26 19:49] LABS: HEMOGRAM NOTE RECHECKED
[2018-07-26 20:47] VITALS: BP 131/61
[2018-07-27 02:00] VITALS: BP 128/77
[2018-07-27 03:00] VITALS: BP 122/77
[2018-07-27] MEDS: PIPERACILLIN/TAZO(ZOSYN) 2.25 GM in NS 50 ML IVPB SCH (03:20)
[2018-07-27 05:26] LABS: BASOPHILS # (AUTO) 0.02 x10^3/uL (0-0.1); BASOPHILS % (AUTO) 0 % (0-1); EOSINOPHILS % (AUTO) 3 % (1-7); LYMPHOCYTES # (AUTO) 0.83 x10^3/uL (1-3.4); LYMPHOCYTES % (AUTO) 9 % (22-44); MD NO; MEAN CORPUSCULAR HEMOGLOBIN 29.5 pg (27.0-34.8); MEAN CORPUSCULAR HGB CONC 33.3 g/dL (32.4-35.8); MEAN CORPUSCULAR VOLUME 88.4 fL (80-100); MEAN PLATELET VOLUME 8.4 fL (7.4-10.4); MONOCYTES # (AUTO) 0.61 x10^3/uL (0.2-0.8); MONOCYTES % (AUTO) 7 % (2-9); NEUTROPHILS # (AUTO) 7.41 x10^3/uL (1.8-6.8); NEUTROPHILS % (AUTO) 81 % (42-75); PLATELET COUNT 264 x10^3/uL (130-400); RED BLOOD COUNT 2.66 x10^6/uL (3.82-5.3); RED CELL DISTRIBUTION WIDTH 14.2 % (9.6-15.2)
[2018-07-27 05:31] LABS: ALANINE AMINOTRANSFERASE 32 U/L (12-78); ALBUMIN 2.6 g/dL (3.4-5.0); ANION GAP 6 mmol/L (5-15); CALCIUM 7.9 mg/dL (8.5-10.1); CHLORIDE 108 mmol/L (98-107); CREATININE 1.42 mg/dL (0.55-1.02)
[2018-07-27 05:34] LABS: ALKALINE PHOSPHATASE 67 U/L (45-117); BILIRUBIN,TOTAL 0.8 mg/dL (0.2-1.0); TOTAL PROTEIN 5.9 g/dL (6.4-8.2)
[2018-07-27 06:52] VITALS: BP 122/66
[2018-07-27] MEDS: POTASSIUM CHLORIDE 20 MEQ TAB.ER.PRT PO SCH ×2 (08:00→17:23)
[2018-07-27] MEDS: MAGNESIUM HYDROXIDE 8%, 30ML UDC PO SCH (09:00)
[2018-07-27] MEDS: LEVOTHYROXINE 50 MCG TABLET PO SCH (09:00)
[2018-07-27] MEDS: AMLODIPINE 5 MG TABLET PO SCH ×2 (09:00→21:18)
[2018-07-27] MEDS: CIPROFLOXACIN 500 MG TABLET PO SCH ×2 (09:00→21:17)
[2018-07-27] MEDS: CHOLECALCIFEROL 1,000 UNIT TABLET PO SCH (09:00)
[2018-07-27] MEDS: AMIODARONE 200 MG TABLET PO SCH (09:00)
[2018-07-27] MEDS: (Iron,Carbonyl/Vit C/Vit B12/Fa** (Iron 100 Plus Tablet**) 1 T PO SCH (09:00)
[2018-07-27] MEDS: PANTOPRAZOLE 40 MG IV IVPush SCH ×2 (12:03→23:34)
[2018-07-27 12:30] VITALS: BP 121/45
[2018-07-27] MEDS ORDERED: PROPOFOL 10 MG/ML, 20ML ONE (12:50)
[2018-07-27] MEDS ORDERED: LIDOCAINE-MPF 1%, 2ML ONE ×2 (13:09→13:44)
[2018-07-27] MEDS ORDERED: OXYcodone 5 MG/5 ML ORAL.SOL UDC PO PRN (14:30)
[2018-07-27] MEDS ORDERED: MIDAZOLAM 1 MG/ML, 2ML IV PRN (14:30)
[2018-07-27] MEDS ORDERED: ONDANSETRON ODT 8 MG PO PRN (14:30)
[2018-07-27] MEDS ORDERED: ONDANSETRON 2MG/ML, 2ML IV PRN (14:30)
[2018-07-27] MEDS ORDERED: ALBUTEROL SULFATE 2.5 MG/3 ML NPPB PRN (14:30)
[2018-07-27] MEDS ORDERED: FENTANYL PF 100 MCG/2ML IV PRN (14:30)
[2018-07-27] MEDS ORDERED: hydrALAzine 20 MG/ML, 1ML IV PRN (14:30)
[2018-07-27] MEDS ORDERED: LABETALOL 5MG/ML, 20ML IV PRN (14:30)
[2018-07-27] MEDS ORDERED: MEPERIDINE/PF 25MG/0.5ML IVPush PRN (14:30)
[2018-07-27] MEDS ORDERED: DIAZEPAM 5 MG/ML, 2ML IVPush PRN (14:30)
[2018-07-27] MEDS ORDERED: PROMETHAZINE 25 MG/ML, 1ML IV PRN (14:30)
[2018-07-27] MEDS ORDERED: HYDROmorphone 2 MG/ML, 1ML IVPush PRN (14:30)
[2018-07-27] MEDS ORDERED: PROMETHAZINE 12.5 MG SUPP PR PRN (14:30)
[2018-07-27] MEDS ORDERED: HALOPERIDOL 5 MG/ML IV PRN (14:30)
[2018-07-27] MEDS ORDERED: EPHEDRINE 50 MG/ML, 1ML IVPush PRN (14:30)
[2018-07-27] MEDS ORDERED: MORPHINE SULFATE 4 MG/ML, 1ML IVPush PRN (14:30)
[2018-07-27 14:57] VITALS: BP 115/45
[2018-07-27 19:15] VITALS: BP 130/54
[2018-07-28 04:17] VITALS: BP 110/44
[2018-07-28 04:21] LABS: BASOPHILS # (AUTO) 0.03 x10^3/uL (0-0.1); BASOPHILS % (AUTO) 0 % (0-1); EOSINOPHILS # (AUTO) 0.12 x10^3/uL (0-0.4); EOSINOPHILS % (AUTO) 2 % (1-7); LYMPHOCYTES # (AUTO) 0.92 x10^3/uL (1-3.4); LYMPHOCYTES % (AUTO) 12 % (22-44); MD NO; MEAN CORPUSCULAR HEMOGLOBIN 28.7 pg (27.0-34.8); MEAN CORPUSCULAR VOLUME 89.8 fL (80-100); MEAN PLATELET VOLUME 8.2 fL (7.4-10.4); MONOCYTES # (AUTO) 0.67 x10^3/uL (0.2-0.8); MONOCYTES % (AUTO) 8 % (2-9); NEUTROPHILS # (AUTO) 6.22 x10^3/uL (1.8-6.8); NEUTROPHILS % (AUTO) 78 % (42-75); PLATELET COUNT 284 x10^3/uL (130-400); RED BLOOD COUNT 2.62 x10^6/uL (3.82-5.3); RED CELL DISTRIBUTION WIDTH 14.1 % (9.6-15.2)
[2018-07-28 04:30] LABS: ALBUMIN 2.4 g/dL (3.4-5.0); ANION GAP 3 mmol/L (5-15); CALCIUM 7.8 mg/dL (8.5-10.1); CHLORIDE 111 mmol/L (98-107)
[2018-07-28 04:41] LABS: ALANINE AMINOTRANSFERASE 33 U/L (12-78); ALKALINE PHOSPHATASE 54 U/L (45-117); BILIRUBIN,TOTAL 0.7 mg/dL (0.2-1.0); CREATININE 1.39 mg/dL (0.55-1.02); TOTAL PROTEIN 5.4 g/dL (6.4-8.2)
[2018-07-28 08:00] VITALS: BP 124/61
[2018-07-28 08:14] LABS: MICROSCOPIC INDICATED
[2018-07-28] MEDS: CHOLECALCIFEROL 1,000 UNIT TABLET PO SCH (09:58)
[2018-07-28] MEDS: AMLODIPINE 5 MG TABLET PO SCH (09:58)
[2018-07-28] MEDS: AMIODARONE 200 MG TABLET PO SCH (09:58)
[2018-07-28] MEDS: POTASSIUM CHLORIDE 20 MEQ TAB.ER.PRT PO SCH (09:58)
[2018-07-28] MEDS: MAGNESIUM HYDROXIDE 8%, 30ML UDC PO SCH (09:58)
[2018-07-28] MEDS: CIPROFLOXACIN 500 MG TABLET PO SCH (09:58)
[2018-07-28] MEDS: (Iron,Carbonyl/Vit C/Vit B12/Fa** (Iron 100 Plus Tablet**) 1 T PO SCH (09:59)
[2018-07-28] MEDS: LEVOTHYROXINE 50 MCG TABLET PO SCH (09:59)
[2018-07-28] MEDS ORDERED: CIPR500T87 PO (11:27)
[2018-07-28] MEDS ORDERED: POTA20TA6 PO (11:27)
[2018-07-28] MEDS: PANTOPRAZOLE 40 MG IV IVPush SCH (12:09)
[2018-07-28 12:32] VITALS: BP 118/49
== END 2018-07-28 15:20 | DRG 853 ==
LOC: ED 13:58 → EDIP 14:29 → 4WST 17:47
PROVIDERS: ADMIT Internal Medicine; ATTEND Emergency Medicine
PROC: BT1D1ZZ Fluoroscopy of Right Kidney, Ureter and Bladder using Low Osmolar Contrast (ICD-10-PCS; 2018-07-23)
PROC: 0T9B70Z Drainage of Bladder with Drainage Device, Via Natural or Artificial Opening (ICD-10-PCS; 2018-07-23)
PROC: 0T788DZ Dilation of Bilateral Ureters with Intraluminal Device, Via Natural or Artificial Opening Endoscopic (ICD-10-PCS; principal; 2018-07-23 16:30)
PROC: 06LY4CC Occlusion of Hemorrhoidal Plexus with Extraluminal Device, Percutaneous Endoscopic Approach (ICD-10-PCS; 2018-07-27)
PROC: 0DBK8ZZ Excision of Ascending Colon, Via Natural or Artificial Opening Endoscopic (ICD-10-PCS; 2018-07-27)
PROC: 0DBL8ZZ Excision of Transverse Colon, Via Natural or Artificial Opening Endoscopic (ICD-10-PCS; 2018-07-27)
PROC: 0DBP8ZZ Excision of Rectum, Via Natural or Artificial Opening Endoscopic (ICD-10-PCS; 2018-07-27)
DX: A41.9 Sepsis, unspecified organism (principal); K85.90 Acute pancreatitis without necrosis or infection, unspecified; N13.6 Pyonephrosis; J96.10 Chronic respiratory failure, unspecified whether with hypoxia or hypercapnia; I50.32 Chronic diastolic (congestive) heart failure; C85.90 Non-Hodgkin lymphoma, unspecified, unspecified site; D68.69 Other thrombophilia; I13.0 Hypertensive heart and chronic kidney disease with heart failure and stage 1 through stage 4 chronic kidney disease, or unspecified chronic kidney disease; K64.9 Unspecified hemorrhoids; B96.5 Pseudomonas (aeruginosa) (mallei) (pseudomallei) as the cause of diseases classified elsewhere; E03.9 Hypothyroidism, unspecified; E87.5 Hyperkalemia; E87.6 Hypokalemia; I07.1 Rheumatic tricuspid insufficiency; I48.91 Unspecified atrial fibrillation; I27.20 Pulmonary hypertension, unspecified; K21.9 Gastro-esophageal reflux disease without esophagitis; K44.9 Diaphragmatic hernia without obstruction or gangrene; K62.1 Rectal polyp; K57.30 Diverticulosis of large intestine without perforation or abscess without bleeding; K59.09 Other constipation; K63.5 Polyp of colon; M41.86 Other forms of scoliosis, lumbar region; N18.9 Chronic kidney disease, unspecified; Z86.010 Personal history of colon polyps; Z87.442 Personal history of urinary calculi; Z87.891 Personal history of nicotine dependence; Z90.49 Acquired absence of other specified parts of digestive tract; Z90.710 Acquired absence of both cervix and uterus
CPT/HCPCS: 36415; 71045; 74176; 74420; 80048; 80053; 81001; 82040; 82272; 83690; 83735; 84132; 84443; 84484; 85025; 85610; 87040; 87077; 87086; 87186; 88305; 93005; 96374; 96375; 99285; G0378; J0696; J1644; J1815; J1885; J2250; J2405; J2543; J2704; J3010; Q9967; C1769; C2617; C9113; J7030